=== PATIENT | female | born 1995 | race African-American/Black ===

== ENCOUNTER 2024-03-04 19:26 | Emergency (ER) | payer OTHER, SELFPAY ==
[2024-03-04] VITALS (11 sets, daily range): BP systolic 93–122; BP diastolic 51–81; PULSE 79–106; RESP 12–27; TEMP 36.8–38.1; O2SAT 97–100; BMI 28.8
[2024-03-04 20:16] LABS: Strep Grp A by PCR Rapid Negative (Negative)
[2024-03-04 20:46] LABS: Influenza A - CEPHEID Flu A NEGATIVE (NEGATIVE); Influenza B - CEPHEID Flu B NEGATIVE (NEGATIVE); Respiratory Syncytial Virus Negative (Negative)
[2024-03-04 20:54] LABS: COVID-19 CEPHEID 4-PLEX PCR POSITIVE (Negative)
--- NOTE | 2024-03-04 21:39 | ED_ITS ---
HPI - Headache General Chief Complaint: Headache Stated Complaint: migraine, sore throat, covid exposure Time Seen by Provider: 03/04/24 19:48 Mode of arrival: Ambulatory History of Present Illness HPI Narrative: 29-year-old female with history of migraines presents with sore throat, body aches, migraine headache. States that she thinks she may have COVID-19 she was recently been exposed at work. Difficulty with swallowing due to pain. No medications taken at home prior to arrival. States that she has had to come to the emergency department multiple times for migraine cocktails, however she recently moved up to [facility] from [facility] and is new to the region. Related Data Allergies Allergy/AdvReac Type Severity Reaction Status Date / Time No Known Drug Allergies Allergy Verified 03/04/24 21:28 Patient History Social History Smoking Status: Never smoker Smoking Status: Never smoker Substance Use Type: does not use Exam Initial Vital Signs Initial Vital Signs: Vital Signs Temperature 100.5 F H 03/04/24 19:36 Pulse Rate 98 H 03/04/24 19:36 Respiratory Rate 18 03/04/24 19:36 Blood Pressure 116/60 03/04/24 19:36 Pulse Oximetry 100 03/04/24 19:36 Oxygen Delivery Method Room Air 03/04/24 19:36 Const: Awake, alert, uncomfortable, nontoxic in appearance HEENT: Minimal pharyngeal erythema without edema or exudates, full range of motion of head and neck Cardiac: regular rate, regular rhythm RESP: unlabored, clear bilaterally, no wheezing Skin: Warm, Dry, intact, no rashes Neuro: AO x3, CN II-XII grossly intact, moves all extremities Course Orders Ordered: Discontinued Medications Diphenhydramine HCl (Diphenhydramine 50 Mg/Ml Vial) 50 mg IV NOW ONE Stop: 03/04/24 21:39 Last Admin: 03/04/24 21:48 Dose: 50 mg Documented By: Sodium Chloride (Normal Saline 0.9%) 1,000 mls @ 1,000 mls/hr IV BOLUS ONE Stop: 03/04/24 22:37 Last Admin: 03/04/24 21:48 Dose: 1,000 mls/hr Documented By: Ketorolac Tromethamine (Ketorolac 30 Mg/Ml Vial) 15 mg IV NOW ONE Stop: 03/04/24 21:39 Last Admin: 03/04/24 21:47 Dose: 15 mg Documented By: Metoclopramide HCl (Metoclopramide 10 Mg/2 Ml Inj) 10 mg IV NOW ONE Stop: 03/04/24 21:39 Last Admin: 03/04/24 21:47 Dose: 10 mg Documented By: Vital Signs Vital signs: Vital Signs - 8 hr 03/04/24 19:36 03/04/24 19:52 03/04/24 20:00 Temperature 100.5 F H Pulse Rate 98 H 93 H 85 Respiratory Rate 18 27 H 20 Blood Pressure 116/60 Pulse Oximetry 100 99 100 Oxygen Delivery Method Room Air 03/04/24 20:00 03/04/24 20:30 03/04/24 20:30 Temperature Pulse Rate 79 Respiratory Rate 12 Blood Pressure 122/81 116/64 Pulse Oximetry 99 Oxygen Delivery Method Room Air 03/04/24 21:00 03/04/24 21:00 03/04/24 21:30 Temperature Pulse Rate 89 Respiratory Rate 22 Blood Pressure 96/51 L 97/55 L Pulse Oximetry 97 Oxygen Delivery Method 03/04/24 21:30 03/04/24 22:00 03/04/24 22:00 Temperature Pulse Rate 92 H 106 H Respiratory Rate 26 H 22 Blood Pressure 93/54 L Pulse Oximetry 99 97 Oxygen Delivery Method 03/04/24 22:30 03/04/24 22:30 03/04/24 23:00 Temperature Pulse Rate 93 H Respiratory Rate 18 Blood Pressure 105/60 108/62 Pulse Oximetry 98 Oxygen Delivery Method 03/04/24 23:00 03/04/24 23:30 03/04/24 23:30 Temperature Pulse Rate 93 H 85 Respiratory Rate 18 22 Blood Pressure 112/67 Pulse Oximetry 98 97 Oxygen Delivery Method MDM - Headache Differential Diagnosis Differential diagnosis: Likely migraine, tension headache and subarachnoid hemorrhage Lab Data Labs: Lab Results 03/04/24 Range/Units 19:55 SARS-CoV-2 (PCR) Positive H (Negative) Influenza A (RT-PCR) Flu a negative (NEGATIVE) Influenza B (RT-PCR) Flu b negative (NEGATIVE) RSV (PCR) Negative (Negative) Group A Strep (PCR) Negative (Negative) MDM Narrative Medical decision making narrative: Nontoxic patient with symptoms of COVID-19 as well as migraine headache. Patient states that this is similar to her normal migraine headaches that she was had to go to the ER for in the past. Patient was reporting head and neck pain, however has full range of motion, no nuchal rigidity, no signs of toxicity and is neurologically intact. No indication for imaging or other aggressive measures at this time. Patient did test positive for COVID-19 on respiratory swab. Patient received IV migraine cocktail and subsequently reported feeling significantly better. Patient counseled on supportive care for COVID-19 at home. Discharge Plan Departure Patient Disposition: Home Clinical Impression: Headache, COVID-19 Instructions: DI for Headache Activity Restrictions/Additional Instructions: Take Tylenol and ibuprofen as needed for pain. Make sure to stay hydrated by drinking plenty of fluids. Follow up as needed with your primary care doctor. Referrals: Miscellaneous,MD Sophie [Primary Care Provider] - Stand Alone Forms: Patient Portal/API
[2024-03-04] MEDS: METOCLOPRAMIDE 10 MG/2 ML INJ IV (21:47)
[2024-03-04] MEDS: KETOROLAC 30 MG/ML VIAL 15 MG IV (21:47)
[2024-03-04] MEDS: SODIUM CHLORIDE 0.9% 1,000 ML 1000 ML IV (21:48)
[2024-03-04] MEDS: diphenhydrAMINE 50 MG/ML VIAL IV (21:48)
== END 2024-03-04 23:59 | disposition home or self-care (01) ==
PROVIDERS: Emergency Provider Emergency Medicine
DX: U07.1 COVID-19 (principal); G43.909 Migraine, unspecified, not intractable, without status migrainosus
CPT/HCPCS: 0241U; 87651; 96374; 96375; 99283; 99284; J1200; J1885; J2765